=== PATIENT | male | born 1960 ===

== ENCOUNTER 2017-11-01 08:48 | Day surgery (SDC) | payer MEDICAID ==
[2017-10-18 08:26] VITALS: BMI 31.9
[2017-11-01] MEDS ORDERED: cefTRIAXone IV 1 gm in Dextros 50 ML IVPB ONE (09:32)
[2017-11-01] MEDS ORDERED: Lidocaine 2% Inj (20ml) ONE (09:32)
[2017-11-01] MEDS ORDERED: Midazolam 2 MG/2 ML VIAL ONE (10:46)
[2017-11-01] MEDS ORDERED: Propofol 10 mg/ml Inj (20 ML) ONE (10:46)
[2017-11-01] MEDS ORDERED: Lactated Ringer's 1,000 ML IV ONE (11:05)
[2017-11-01] MEDS ORDERED: cefTRIAXone (Rocephin) 1 gm Inj IVPB ONE (11:10)
[2017-11-01] MEDS ORDERED: Albuterol 0.083% Inhal Sol (2.5 mg/3 mL) UD ONE (12:14)
[2017-11-01] MEDS ORDERED: Dexamethasone 4 mg/1 ml ONE (12:15)
[2017-11-01] MEDS ORDERED: Lactated Ringer's 1,000 ML IV SCH (12:30)
[2017-11-01] MEDS ORDERED: Albuterol 0.083% Inhal Sol (2.5 mg/3 mL) UD INH ONE (12:30)
[2017-11-01] MEDS ORDERED: HYDROmorphone 0.5 mg/0.5 ml ISec IVP STA ×2 (12:41→13:46)
[2017-11-01] MEDS ORDERED: HYDROmorphone 0.5 mg/0.5 ml ISec ONE (12:46)
[2017-11-01] MEDS ORDERED: Dexamethasone 4 mg/1 ml IVP ONE (14:00)
[2017-11-01 14:16] VITALS: RESP 18
[2017-11-01 15:14] VITALS: O2SAT 97
[2017-11-01 15:57] VITALS: BP 132/78; PULSE 82; TEMP 97.2
--- NOTE | 2017-11-16 10:14 | OP ---
PROCEDURE DATE: 11/01/2017 PREOPERATIVE DIAGNOSIS: Left hydrocele. POSTOPERATIVE DIAGNOSIS: Left hydrocele. PROCEDURE PERFORMED: Left hydrocelectomy. DESCRIPTION OF PROCEDURE: Patient was placed on the operating room table in a supine position. The area of the groin was draped and prepped in a sterile manner. At this time, after general anesthesia was given, there was an incision made over the left javier-scrotum in the largest diameter of the hydrocele. I enucleated hydrocele from the scrotal sac and began to remove the layers of tissue over the hydrocele. Once I denuded it completely, then I made an incision into the hydrocele cavity. The fluid that came out was a straw colored yellow. I excised the hydrocele sac and then with multiple running sutures of 3-0 chromic, I sutured the entire rim of the hydrocele sac. Once this was done, the testicle was placed back into the scrotal cavity, and the closure was in a 2-layer closure of the subcu skin followed by the scrotal tissue with multiple interrupted 3-0 chromic sutures. Once this was completely done, then a dressing was placed over the wound site and the patient then was taken from the operating room in good condition. I estimated the blood loss to be less than 10 mL. Javier Interiano MD
== END 2017-11-01 16:05 | disposition home or self-care (01) ==
LOC: H.OPSURG 08:48
PROVIDERS: ATTEND Urology
DX: N43.3 Hydrocele, unspecified (principal); J45.909 Unspecified asthma, uncomplicated; M19.90 Unspecified osteoarthritis, unspecified site
CPT/HCPCS: 55040; 88302; 94640; J0696; J1100; J1170; J2250; J2704; J3010; J7030; J7120

== ENCOUNTER 2018-01-07 08:20 | Emergency (ER) | payer MEDICAID ==
[2018-01-07 08:25] VITALS: BMI 30.7
[2018-01-07 08:27] VITALS: RESP 20; O2SAT 98
--- NOTE | 2018-01-07 10:39 | ED PDOC ---
HPI: Male Pain Time Seen by Provider: 01/07/18 08:42 Chief Complaint (Nursing): Abdominal Pain History Per: Patient (this 57 yo male presents with c/o genital discomfort for 20 days and inability to have an erection. He states he was operated for a leakage in the area by Dr. Interiano in October. He denies fever or chills. He also wants to have his prostate examined.) Past Medical History Reviewed: Historical Data, Nursing Documentation, Vital Signs Vital Signs: Last Vital Signs Temp 97 F L 01/07/18 08:26 Pulse 91 H 01/07/18 08:26 Resp 20 01/07/18 08:26 BP 139/88 01/07/18 08:26 Pulse Ox 98 01/07/18 08:26 - Medical History PMH: Asthma Denies: Chronic Kidney Disease - Family History Family History: States: Unknown Family Hx - Living Arrangements Living Arrangements: Alone - Home Medications Home Medications: Ambulatory Orders Medication Instructions Recorded Ciprofloxacin [Cipro] 500 mg PO BID 11/01/17 Ibuprofen [Motrin Tab] 800 mg PO DAILY 11/01/17 Tramadol HCl/Acetaminophen 1 tab PO Q8 PRN 11/01/17 [Ultracet Tablet] Ciprofloxacin HCl [Cipro] 500 mg PO BID #28 tab 01/07/18 Naproxen [Naprosyn] 500 mg PO BID PRN #20 tablet 01/07/18 - Allergies Allergies/Adverse Reactions: Allergies Allergy/AdvReac Type Severity Reaction Status Date / Time aspirin Allergy NAUSEA Verified 11/01/17 09:02 shrimps Allergy ITCHING Uncoded 11/01/17 09:02 Review of Systems ROS Statement: Except As Marked, All Systems Reviewed And Found Negative Constitutional: Negative for: Fever Gastrointestinal: Negative for: Nausea, Vomiting, Abdominal Pain Genitourinary Male: Positive for: Scrotal Pain. Negative for: Dysuria, Hematuria, Penile Discharge, Penile Pain Physical Exam - Reviewed Nursing Documentation Reviewed: Yes Vital Signs Reviewed: Yes - Physical Exam Appears: Positive for: Well, Non-toxic, No Acute Distress Head Exam: Positive for: ATRAUMATIC, NORMAL INSPECTION, NORMOCEPHALIC Skin: Positive for: Normal Color, Warm, DRY Eye Exam: Positive for: Normal appearance Neck: Positive for: Normal Gastrointestinal/Abdominal: Positive for: Normal Exam Male Genital Exam: Positive for: normal genitalia, testicular tenderness (L). Negative for: epididymal tenderness, erythema, urethral discharge Back: Positive for: Normal Inspection Extremity: Positive for: Normal ROM Neurologic/Psych: Positive for: Alert, Oriented - ECG O2 Sat by Pulse Oximetry: 98 Disposition - Clinical Impression Clinical Impression: Chronic pain in testicle - Patient ED Disposition Is Patient to be Admitted: No Doctor Will See Patient In The: Office Counseled Patient/Family Regarding: Diagnosis, Need For Followup, Rx Given - Disposition Referrals: Javier Interiano MD [Medical Doctor] - Disposition: Routine/Home Disposition Time: 10:00 Condition: STABLE Prescriptions: Ciprofloxacin HCl [Cipro] 500 mg PO BID #28 tab Naproxen [Naprosyn] 500 mg PO BID PRN #20 tablet PRN Reason: Pain, Moderate (4-7) Instructions: Testicle Pain (ED) Forms: [facility] (Burkinan) - POA Present On Arrival: None
[2018-01-07 11:06] VITALS: BP 120/78; PULSE 78; TEMP 97.7
== END 2018-01-07 12:04 | disposition home or self-care (01) ==
LOC: H.ER 08:20
DX: N50.819 Testicular pain, unspecified (principal); G89.29 Other chronic pain; J45.909 Unspecified asthma, uncomplicated